=== PATIENT | female | born 1990 | race Caucasian/White ===

== ENCOUNTER 2017-02-04 11:06 | Emergency (ER) | payer BC, OTHER ==
[~2017-02-04] VITALS: Ht 157.5 cm; Wt 57.4 kg
[~2017-02-04 11:06] MED LIST: VNTHFA/IN INH
[2017-02-04 11:12] VITALS: TEMP 37.1; Ht 157.5 cm; Wt 57.4 kg
[2017-02-04] MEDS ORDERED: SODIUM CHLORIDE 0.9% 1000ML 1,000 ML IV STA (11:25)
[2017-02-04] MEDS ORDERED: OPTIRAY 320 IV PRN (11:30)
--- NOTE | 2017-02-04 11:32 | EMERGENCY ROOM VISIT NOTE ---
History First contact with patient: 11:17 Chief Complaint: CHEST PAIN Stated Complaint: CHEST PAIN,RACING HR, HEADACK, NECK PAIN Nursing Triage Summary: Pt presents with c/o heart racing and b/l chest pain x 2 weeks. Pt states, " When I take a deep breath it feels like there is something there. It makes me lightheaded and I get hot flashes. I also get some neck pain and h/a." History of Present Illness The patient is a 27 year old female who presents to the Emergency Room with complaints of chest pain. The patient states that she developed chest pain 2 weeks ago. She states it has progressively worsened. She states that is it is sharp and painful in the center of her chest. She reports shortness of breath. She states that she feels something in her chest when she is breathing. She states she has also developed a headache which she describes as the worst headache of her life. She states that she also has anterior neck pain. She reports palpitations, lightheadedness. She rates her discomfort a 6/10. She denies any recent illness, earache, sore throat, cough, fever. She denies any abdominal pain, nausea or vomiting. She denies any extremity numbness, tingling , weakness or swelling. She believes there is a family history of blood clots on her mother's side. She denies any personal history of clotting disorder, DVT or PE. She denies any history of cardiac disease. She states her mother has a history of thyroid problems but the patient does not. Review of Systems A 10 system review of systems was completed with positives and pertinent negatives listed in the HPI. Past Medical/Surgical History Medical Problems: (1) Asthma Social History Smoking Status: Former Smoker Alcohol Use: none Drug Use: none Marital Status: Housing Status: lives with family Occupation Status: employed Current/Historical Medications Scheduled PRN Albuterol Hfa (Ventolin Hfa), 2 PUFFS INH prn PRN for Wheezing Allergies Coded Allergies: BEE STING (Verified Allergy, Severe, ANAPHYLAXIS, 02/04/17) Physical Exam Vital Signs Date Time Temp Pulse Resp B/P Pulse Ox O2 Delivery O2 Flow Rate FiO2 02/04/17 13:19 79 14 96/72 100 Room Air 02/04/17 11:44 98 02/04/17 11:12 37.1 118 18 130/86 100 Room Air Physical Exam VITALS: Vitals are noted on the nurse's note and reviewed by myself. Vital signs stable. The patient is tachycardic with a heart rate of 118 bpm. GENERAL: This is a 27-year-old female, in no acute distress, nondiaphoretic, well-developed well-nourished. SKIN: The skin was without rashes, erythema, edema, or bruising. There is no tenting of the skin. Capillary reflex less than 2 seconds. HEAD: Normocephalic atraumatic. EARS: External auditory canals clear, tympanic membranes pearly zaragoza without erythema or effusion bilaterally. EYES: Pupils equal round and reactive to light and accommodation. Conjunctivae without injection, sclerae without icterus. Extraocular movements intact. NOSE: Patent, turbinates without inflammation or discharge. MOUTH: Mucous membranes moist. Tonsils are not enlarged. Pharynx without erythema or exudate. Uvula midline. Airway patent. Tongue does not deviate. NECK: Supple without nuchal rigidity. No lymphadenopathy. No thyromegaly. Cervical spine is nontender. No JVD. HEART: Fast rate and regular rhythm without murmurs gallops or rubs. LUNGS: Clear to auscultation bilaterally without wheezes, rales or rhonchi. No retractions or accessory muscle use. ABDOMEN: Positive bowel sounds x 4. Soft, nontender, without masses or organomegaly. MUSCULOSKELETAL: No muscle atrophy, erythema, or edema noted. Full range of motion in all extremities. Normal gait. Strength 5/5 throughout. NEURO: Patient was alert and oriented to person place and time. No focal neurological deficits. Medical Decision & Procedures Laboratory Results 02/04/17 11:38 Red Blood Count 4.87, Mean Corpuscular Volume 84.4, Mean Corpuscular Hemoglobin 29.2, Mean Corpuscular Hemoglobin Concent 34.5, Mean Platelet Volume 10.7, Neutrophils (%) (Auto) 71.8, Lymphocytes (%) (Auto) 17.8, Monocytes (%) (Auto) 8.7, Eosinophils (%) (Auto) 1.4, Basophils (%) (Auto) 0.3, Neutrophils # (Auto) 5.01, Lymphocytes # (Auto) 1.24, Monocytes # (Auto) 0.61, Eosinophils # (Auto) 0.10, Basophils # (Auto) 0.02 02/04/17 11:38 Test 02/04/17 11:30 02/04/17 11:38 02/04/17 11:46 Urine Color YELLOW Urine Appearance CLEAR (CLEAR) Urine pH 7.5 (4.5-7.5) Urine Specific [place] 1.018 (1.000-1.030) Urine Protein NEG (NEG) Urine Glucose (UA) NEG (NEG) Urine Ketones NEG (NEG) Urine Occult Blood NEG (NEG) Urine Nitrite NEG (NEG) Urine Bilirubin NEG (NEG) Urine Urobilinogen NEG (NEG) Urine Leukocyte Esterase NEG (NEG) Urine Test NEG (NEG) White Blood Count 6.98 K/uL (4.8-10.8) Red Blood Count 4.87 M/uL (4.2-5.4) Hemoglobin 14.2 g/dL (12.0-16.0) Hematocrit 41.1 % (37-47) Mean Corpuscular Volume 84.4 fL (80-100) Mean Corpuscular Hemoglobin 29.2 pg (25-34) Mean Corpuscular Hemoglobin Concent 34.5 g/dl (32-36) Platelet Count 226 K/uL (130-400) Mean Platelet Volume 10.7 fL (7.4-10.4) Neutrophils (%) (Auto) 71.8 % Lymphocytes (%) (Auto) 17.8 % Monocytes (%) (Auto) 8.7 % Eosinophils (%) (Auto) 1.4 % Basophils (%) (Auto) 0.3 % Neutrophils # (Auto) 5.01 K/uL (1.4-6.5) Lymphocytes # (Auto) 1.24 K/uL (1.2-3.4) Monocytes # (Auto) 0.61 K/uL (0.11-0.59) Eosinophils # (Auto) 0.10 K/uL (0-0.5) Basophils # (Auto) 0.02 K/uL (0-0.2) RDW Standard Deviation 40.6 fL (36.4-46.3) RDW Coefficient of Variation 13.2 % (11.5-14.5) Immature Granulocyte % (Auto) 0.0 % Immature Granulocyte # (Auto) 0.00 K/uL (0.00-0.02) Prothrombin Time 11.4 SECONDS (9.0-12.0) Prothromb Time International Ratio 1.1 (0.9-1.1) Activated Partial Thromboplast Time 26.2 SECONDS (21.0-31.0) Partial Thromboplastin Ratio 1.0 Est Creatinine Clear Calc Drug Dose 79.8 ml/min Estimated GFR () 111.2 Estimated GFR (Non- 96.0 BUN/Creatinine Ratio 9.1 (10-20) Calcium Level 9.0 mg/dl (8.5-10.1) Total Bilirubin 0.6 mg/dl (0.2-1) Aspartate Amino Transf (AST/SGOT) 14 U/L (15-37) Alanine Aminotransferase (ALT/SGPT) 20 U/L (12-78) Alkaline Phosphatase 51 U/L (45-117) Total Creatine Kinase 66 U/L (26-192) Creatine Kinase MB < 0.5 ng/ml (0.5-3.6) Creatine Kinase MB Ratio (0-3.0) Troponin I < 0.015 ng/ml (0-0.045) Total Protein 7.9 gm/dl (6.4-8.2) Albumin 4.2 gm/dl (3.4-5.0) Globulin 3.7 gm/dl (2.5-4.0) Albumin/Globulin Ratio 1.1 (0.9-2) Lipase 141 U/L (73-393) Thyroid Stimulating Hormone (TSH) 1.130 uIu/ml (0.300-4.500) Bedside Hemoglobin 14.6 g/dl (12.0-16.0) Bedside Hematocrit 43 % (37-47) Bedside Sodium 140 mEq/L (135-144) Bedside Potassium 3.1 mEq/L (3.3-5.0) Bedside Chloride 101 mEq/L (101-112) Bedside Total CO2 26 mEq/l (24-31) Anion Gap 17.0 mmol/L (16-25) Bedside Blood Urea Nitrogen 6 mg/dl (7-18) Bedside Creatinine 0.6 mg/dl (0.6-1.3) Bedside Glucose (other) 77 mg/dl (70-99) Bedside Ionized Calcium (Kylee) 1.23 mmol/l (1.12-1.32) Medications Administered Medications (Trade) Dose Ordered Sig/Nae Route Start Time Stop Time Status Last Admin Dose Admin Sodium Chloride (Nss 1000ml) 1,000 ml @ 999 mls/hr Q1H1M STAT IV 02/04/17 11:25 02/04/17 12:25 DC 02/04/17 11:49 999 MLS/HR Procedure The patient was monitored on a cardiac cath technician. They maintained a normal sinus rhythm without ectopy. ECG Indication: chest pain Rate (beats per minute): 84 Rhythm: normal sinus Findings: no acute ischemic change Change: no significant change ED Course The patient was seen and examined. Previous visits were reviewed. The patient does not have a fever or leukocytosis. She does not have any significant electrolyte abnormalities. She is slightly hypokalemic with potassium of 3.1. She was advised of this. Cardiac enzymes were not elevated. TSH was within normal limits. Lipase was not elevated. CT imaging was obtained as above and does not reveal any significant abnormality. The patient presented to the emergency department with chest pain, shortness of breath, tachycardia, the worst headache of her life and neck pain. She reported a family history of blood clots. Given the patient's symptoms, the above workup was ordered. The workup was fairly unremarkable. The patient states she has had costochondritis in the past and this could represent a similar episode. She should try anti-inflammatories. She should follow-up with her family doctor for further evaluation and management. She should return to the ER with any worsening symptoms. The case was discussed with Dr. Shah who agrees with the assessment and treatment plan Medical Decision DIFFERENTIAL DIAGNOSIS: Aortic dissection, myocarditis, pericarditis, cervical disc disease, costochondritis, herpes zoster, rib fracture, pleuritis, pneumonia , pulmonary embolus, tension pneumothorax, anxiety disorder, somatoform disorder , choledocholithiasis, status, esophagitis, esophageal spasm, esophageal reflux , esophageal rupture, pancreatitis, peptic ulcer disease, cardiac ischemia, ST elevation OR, acute coronary syndrome, arrhythmia, coronary artery vasospasm. vavular heart disease, coronary artery disease, aneurysm, CVA, TIA, intracranial bleeding, intracranial mass, among others. Impression Primary Impression: Substernal precordial chest pain Additional Impressions: Dyspnea Headache Departure Information Dispostion Home / Self-Care Condition GOOD Referrals Penny Dallas M.D. (PCP) Patient Instructions Chest Pain - [facility], My [facility] Additional Instructions Motrin 600 mg every 6-8 hours for moderate pain Contact your family doctor to schedule a follow-up appointment in 5-7 days Return with any worsening pain Problem Qualifiers
--- NOTE | 2017-02-04 11:53 | DIAGNOSTIC IMAGING REPORT ---
CHEST ONE VIEW PORTABLE HISTORY: Atypical chest pain COMPARISON: Chest 05/16/2014. FINDINGS: The lungs are clear. Cardiac silhouette is normal in size. No pleural effusions. No pneumothorax. IMPRESSION: No acute process. Electronically signed by: Venkatesh Ro M.D. 02/04/2017 11:52 AM Dictated Date/Time: 02/04/2017 11:51 AM
[2017-02-04 11:57] LABS: BASO % 0.3 %; BASO ABS # 0.02 K/uL (0-0.2); COMPLETE YES; EOS % 1.4 %; HEMATOCRIT 41.1 % (37-47); LYMPH % 17.8 %; LYMPH ABS # 1.24 K/uL (1.2-3.4); MEAN CELL VOLUME 84.4 fL (80-100); MEAN CORPUSCULAR HEMOGLOBIN 29.2 pg (25-34); MEAN CORPUSCULAR HGB CONC 34.5 g/dl (32-36); MEAN PLATELET VOLUME 10.7 fL (7.4-10.4); MONO % 8.7 %; NEUT % 71.8 %; PLATELET COUNT 226 K/uL (130-400); RED BLOOD COUNT 4.87 M/uL (4.2-5.4); WHITE BLOOD COUNT 6.98 K/uL (4.8-10.8)
[2017-02-04 12:00] LABS: ISTAT CREATININE 0.6 mg/dl (0.6-1.3); ISTAT HEMOGLOBIN 14.6 g/dl (12.0-16.0); ISTAT IONIZED CALCIUM 1.23 mmol/l (1.12-1.32)
[2017-02-04 12:05] LABS: INR 1.1 (0.9-1.1); PROTHROMBIN TIME (PATIENT) 11.4 SECONDS (9.0-12.0)
[2017-02-04 12:18] LABS: ALT/SGPT 20 U/L (12-78); AST/SGOT 14 U/L (15-37); BLOOD UREA NITROGEN 8 mg/dl (7-18); BUN/CREATININE RATIO 9.1 (10-20); CARBON DIOXIDE 31 mmol/L (21-32); CHLORIDE 105 mmol/L (98-107); CREATININE 0.83 mg/dl (0.60-1.20); GLUCOSE 75 mg/dl (70-99); POTASSIUM 3.1 mmol/L (3.5-5.1); SODIUM 140 mmol/L (136-145)
[2017-02-04 12:29] LABS: ALB/GLOB RATIO 1.1 (0.9-2); ALKALINE PHOSPHATASE 51 U/L (45-117)
--- NOTE | 2017-02-04 12:33 | DIAGNOSTIC IMAGING REPORT ---
CT ANGIOGRAPHY HEAD COMBO CT DOSE: 919.02 mGy.cm CLINICAL HISTORY: Headache. Neck pain. TECHNIQUE: Initially, axial unenhanced images of the head were obtained. Arterial phase images of the head were then obtained following intravenous injection of 110 cc Optiray 320 IV. Sagittal and coronal reconstructions were viewed as well as maximal intensity projections on an independent 3-D workstation. COMPARISON STUDY: None. FINDINGS: No acute intracranial hemorrhage, midline shift or mass effect is present. Ventricular system is normal. Basilar cisterns are patent. There are no extra-axial collections. [place]-white differentiation is maintained. There are no findings to suggest acute dural sinus thrombosis or acute territorial infarct. No calvarial abnormalities are present. Visualized portions of the sinuses and mastoid air cells are clear. The bilateral M1, M2, A1 and A2 segments are patent. There is an anterior communicating artery and right posterior communicating artery. There is persistence of the left posterior cerebral artery. The posterior circulation is intact. There is no intracranial aneurysm, abrupt vessel cut off or evidence for dissection. The CTA of the neck will be reported separately. IMPRESSION: 1. No acute intracranial findings. 2. Normal CTA of the head. Electronically signed by: Frank East M.D. 02/04/2017 12:32 PM Dictated Date/Time: 02/04/2017 12:28 PM
--- NOTE | 2017-02-04 12:55 | DIAGNOSTIC IMAGING REPORT ---
CT ANGIOGRAM OF THE NECK CLINICAL HISTORY: Lightheadedness. Neck pain. COMPARISON STUDY: No priors. TECHNIQUE: Following the IV administration of 110 of Optiray 320, CT angiogram of the neck was performed from the aortic arch to the skull base. Images are reviewed in the axial, sagittal, and coronal planes. 3-D MIPS images are created and assessed. IV contrast was administered without complication. All measurements were calculated based on NASCET criteria. FINDINGS: Thoracic aorta: Visualized portions of the thoracic aorta are normal in caliber. The aortic arch demonstrates standard 3-vessel anatomy. Subclavian arteries: Widely patent bilaterally. Right carotid arterial system: The right common carotid artery is widely patent, as are the right internal and external carotid arteries. Left carotid arterial system: The left common carotid artery is widely patent, as are the left internal and external carotid arteries. Vertebral arteries: The vertebral arteries are widely patent and codominant. Intracranial vasculature: The partially imaged intracranial vessels at the skull base are patent. Jugular veins: Widely patent bilaterally. Brain parenchyma: The visualized brain parenchyma the skull base is within normal limits. Lung apices: Partially visualized upper lobe lung parenchyma appears clear. Soft tissues: The visualized pharyngeal soft tissues are normal in appearance noting angiographic phase technique. The oropharyngeal airway appears widely patent. The salivary and thyroid glands are normal in appearance. No cervical lymphadenopathy is seen. Skeletal structures: The visualized calvarium at the skull base appears intact. The imaged cervical spine is within normal limits. IMPRESSION: Unremarkable CT angiogram of the neck. Electronically signed by: James Ann M.D. 02/04/2017 12:53 PM Dictated Date/Time: 02/04/2017 12:29 PM
--- NOTE | 2017-02-04 12:56 | DIAGNOSTIC IMAGING REPORT ---
CT ANGIOGRAPHY OF THE CHEST, PULMONARY EMBOLUS PROTOCOL CLINICAL HISTORY: Tachycardia. Chest pain. Dyspnea. COMPARISON STUDY: Chest radiograph February 04, 2017 and May 16, 2014. TECHNIQUE: Following IV administration of 110 mL of Optiray-320, helical axial images of the chest were obtained utilizing the pulmonary embolus protocol. Maximal intensity projections and sagittal and coronal reformats were viewed on an independent 3D workstation. IV contrast was administered without complication. FINDINGS: No pulmonary emboli are identified. There is no evidence of thoracic aortic dissection. The size of the heart is normal. There is no pericardial effusion or enlarged thoracic lymph nodes. Central airways are patent. Lungs are clear. There is no pneumothorax or pleural effusion. The bony thorax and upper abdomen are unremarkable. IMPRESSION: 1. No pulmonary emboli identified. 2. No acute intrathoracic findings. Electronically signed by: Frank East M.D. 02/04/2017 12:54 PM Dictated Date/Time: 02/04/2017 12:50 PM
[2017-02-04 13:19] VITALS: BP 96/72; PULSE 79; O2SAT 100
[2017-02-04 13:42] LABS: URINE APPEARANCE CLEAR (CLEAR); URINE BILIRUBIN NEG (NEG); URINE COLOR YELLOW; URINE NITRITE NEG (NEG); URINE PH 7.5 (4.5-7.5); URINE SPECIFIC GRAVITY 1.018 (1.000-1.030); UROBILINOGEN NEG (NEG); ZZUR CULT IF INDIC CLEAN CATCH NO
[2017-02-04 13:51] LABS: MANUAL MICROSCOPIC REQUIRED? NO; REVIEW REQ? NO
== END 2017-02-04 13:25 | disposition home or self-care (01) ==
LOC: C.EDB 11:07 → C.EDC 13:25
DX: R07.2 Precordial pain (principal); R06.00 Dyspnea, unspecified; R51 Headache; J45.909 Unspecified asthma, uncomplicated; Z87.891 Personal history of nicotine dependence; R00.0 Tachycardia, unspecified; E87.6 Hypokalemia